=== PATIENT | female | born 1955 | race Caucasian/White ===

== ENCOUNTER 2021-07-12 14:55 | Inpatient (IN) | payer OTHER ==
[~2021-07-12] VITALS: Ht 154.9 cm; Wt 69.8 kg
[~2021-07-12 14:55] MED LIST: AMITRIPTYLINE100 M2 PO; ATEN50 PO; AZIT250 PO; Aspir 8181 MG PO; CHLO25B; Lisinopril2.5 MG; NABU500; POTA20PAC PO
[2021-07-12 15:22] LABS: Hematocrit 43.3 % (33.0-51.0); Hemoglobin 13.7 g/dL (11.5-16.0); Mean Corpuscular HGB 30.6 pg (26.0-34.0); Mean Corpuscular HGB Conc 31.6 g/dL (31.5-36.5); Mean Corpuscular Volume 97 fL (80-100); Mean Platelet Volume 10.8 fL (9.1-12.4); Platelet Count 388 K/mm3 (150-400); RDW Coefficient Variation 14.2 % (11.7-14.2); RDW Standard Deviation 51.5 fL (35.1-46.3); Red Blood Cell Count 4.47 M/mm3 (3.80-5.20); White Blood Cell Count 18.76 K/mm3 (4.00-11.30)
[2021-07-12 15:42] LABS: Alanine Aminotransfer (ALT/SGP 45 U/L (12-78); Albumin, Blood 2.5 g/dL (3.4-5.0); Albumin/Globulin Ratio 0.4 (0.8-1.8); Alk Phos 154 U/L (50-136); Anion Gap 8 mmol/L (6-16); Aspartate Aminotrans (AST/SGOT 44 U/L (12-37); Bilirubin, Total 0.5 mg/dL (0.1-1.0); Blood Urea Nitrogen 27 mg/dL (8-24); Bun/Creatinine Ratio 35.2 (12.0-20.0); CO2, Blood 35 mmol/L (21-32); Calcium, Blood 10.4 mg/dL (8.5-10.1); Chloride, Blood 96 mmol/L (98-108); Creatinine, Blood 0.77 mg/dL (0.40-1.00); Globulin, Blood 6.4 g/dL (2.2-4.0); Glomerular Filtration Rate >60 (60-); Glucose, Blood 209 mg/dL (70-99); Potassium, Blood 3.5 mmol/L (3.5-5.5); Sodium, Blood 139 mmol/L (136-145); Total Protein, Blood 8.9 g/dL (6.4-8.2)
[2021-07-12 15:48] LABS: PCO2 Arterial 65.2 mmHg (35-45); PO2 Arterial 82.2 mmHg (80-100); pH Blood Arterial 7.36 (7.35-7.45)
[2021-07-12 16:29] LABS: BAND PERCENT MAN 10 % (0-8); BASOPHILS PERCENT MAN 0 % (0-2); EOSINOPHILS PERCENT MAN 0 % (0-6); LYMPHOCYTES ABSOLUTE MAN 1.68 K/mm3 (0.84-5.20); LYMPHOCYTES PERCENT MAN 9 % (21-46); METAMYELOCYTE ABSOLUTE MAN 0.18 K/mm3 (0.00-0.00); METAMYELOCYTE PERCENT MAN 1 % (0-0); MONOCYTES PERCENT MAN 8 % (4-13); NEUTROPHILS ABSOLUTE MAN 15.38 K/mm3 (1.96-9.15); SEG NEUTROPHILS PERCENT MAN 72 % (41-73); TOTAL CELLS COUNTED 100
[2021-07-13 04:06] LABS: BASOPHILS ABSOLUTE AUTO 0.09 K/mm3 (0.00-0.23); BASOPHILS PERCENT AUTO 1 % (0-2); EOSINOPHILS ABSOLUTE AUTO 0.01 K/mm3 (0.00-0.68); EOSINOPHILS PERCENT AUTO 0 % (0-6); Hematocrit 39.5 % (33.0-51.0); Hemoglobin 12.6 g/dL (11.5-16.0); IMMATURE GRAN ABSOLUTE AUTO 0.24 K/mm3 (0.00-0.10); IMMATURE GRAN PERCENT AUTO 2 % (0-1); LYMPHOCYTES ABSOLUTE AUTO 0.75 K/mm3 (0.84-5.20); LYMPHOCYTES PERCENT AUTO 7 % (21-46); MONOCYTES ABSOLUTE AUTO 0.18 K/mm3 (0.16-1.47); MONOCYTES PERCENT AUTO 2 % (4-13); Mean Corpuscular HGB 30.7 pg (26.0-34.0); Mean Corpuscular HGB Conc 31.9 g/dL (31.5-36.5); Mean Corpuscular Volume 96 fL (80-100); Mean Platelet Volume 10.8 fL (9.1-12.4); NEUTROPHILS ABSOLUTE AUTO 9.63 K/mm3 (1.96-9.15); NEUTROPHILS PERCENT AUTO 88 % (41-73); Platelet Count 344 K/mm3 (150-400); RDW Coefficient Variation 14.4 % (11.7-14.2); RDW Standard Deviation 50.6 fL (35.1-46.3)
[2021-07-13 04:25] LABS: Anion Gap 8 mmol/L (6-16); Blood Urea Nitrogen 29 mg/dL (8-24); Bun/Creatinine Ratio 45.2 (12.0-20.0); CO2, Blood 34 mmol/L (21-32); Calcium, Blood 9.4 mg/dL (8.5-10.1); Chloride, Blood 99 mmol/L (98-108); Creatinine, Blood 0.64 mg/dL (0.40-1.00); Glomerular Filtration Rate >60 (60-); Glucose, Blood 150 mg/dL (70-99); Potassium, Blood 3.5 mmol/L (3.5-5.5); Sodium, Blood 141 mmol/L (136-145)
--- NOTE | 2021-07-13 05:44 | NUR ---
SHIFT SUMMARY PT IS ALERT AND ORIENTED. PT DENIES CHEST PAIN/PRESSURE. PT BECOMES SOB UPON EXERTION. WILL DESAT INTO LOW 80'S AND IS SLOW TO RECOVER INTO >89%. PT IS ON 5-7 HIFLOW NC. PT IS CURRENTLY ABLE TO USE BSC WITH SBA. BP HAS BEEN ELEVATED AFTER MOVEMENT AND IS SR-ST. TEMP IS WNL. CALL LIGHT IS WITHIN REACH. PT DID ATTEMPT TO GET OUT OF BED TO USE BATHROOM, BED ALARM IS ON.
--- NOTE | 2021-07-13 10:29 | NUR ---
AM NOTE: PATIENT ALERT AND ORIENTED X4. AT TIMES SLIGHTLY CONFUSED. DENIES NUMBNESS/TINLING. IRREGULAR LEFT PUPIL SHAPE, PATIENT STATES BASELINE FROM PREVIOUS SURGERY. TELE SHOWING SINUS RHYTHM WITH HR 80'S. AT TIMES HR INCREASING TO 130'S. BP STABLE. DENIES CHEST PAIN/PRESSURE. ON 8L NASAL CANNULA. LUNGS SOUNDING WHEEZY, BREATHING TREATMENTS. DRY COUGH. ATTENDS IN PLACE. BSC WITH 1 PERSON ASSIST. AT TIMES INCONT. TOLERATING PO DIET. PATIENT STATES SHE DOES NOT HAVE MUCH OF AN APPEATITE. DRINKING WATER. TAKING PILLS WHOLE. BED ALARM ON FOR SAFETY. CALL LIGHT IN REACH. WILL CONTINUE TO MONITOR. DR. ALVARADOTRATE IN TO SEE PATIENT. DISCUSSED CHEST XRAY AND RECENT LAB RESULTS.
--- NOTE | 2021-07-13 13:30 | NUR ---
UPDATE: SPOKE WITH DR. BENITEZ REGARDING THE NEED TO CONTINUE NORMAL SALINE. ORDERS TO RUN AT TKO AT THIS TIME. WILL RUN NORMAL SALINE AT TKO. PATIENT RESTING IN BED.
--- NOTE | 2021-07-13 17:58 | NUR ---
SHIFT SUMMARY: NO ACUTE CHANGES. PATIENT NEURO REMAINS UNCHANGED. ON 5-8L NASAL CANNULA NEEDING MORE WHEN UP TO BSC OR TALKING. SATING LOW 90'S. TELE REMAINS UNCHANGED. NO CHEST PAIN/PRESSURE. DECREASED APPEATITE. DRY COUGH CONTINUES. PATIENT STATES SHE IS FEELING SOB. 1 PERSON STAND BY TO BSC. FAMILY IN TO VISIT. DENIES PAINS AT THIS TIME. SPEECH THERAPY ORDERED FOR TOMORROW. NORMAL SALINE RUNNING AT TKO. WILL CONTINUE TO MONITOR AND REPORT OFF.
[2021-07-14 03:43] LABS: BASOPHILS ABSOLUTE AUTO 0.07 K/mm3 (0.00-0.23); BASOPHILS PERCENT AUTO 1 % (0-2); EOSINOPHILS PERCENT AUTO 0 % (0-6); Hematocrit 41.7 % (33.0-51.0); Hemoglobin 12.7 g/dL (11.5-16.0); Mean Corpuscular HGB 30.2 pg (26.0-34.0); Mean Corpuscular HGB Conc 30.5 g/dL (31.5-36.5); Mean Corpuscular Volume 99 fL (80-100); Mean Platelet Volume 10.7 fL (9.1-12.4); Platelet Count 351 K/mm3 (150-400); RDW Coefficient Variation 14.8 % (11.7-14.2); RDW Standard Deviation 54.3 fL (35.1-46.3); White Blood Cell Count 11.49 K/mm3 (4.00-11.30)
[2021-07-14 03:45] LABS: IMMATURE GRAN PERCENT AUTO 3 % (0-1); LYMPHOCYTES PERCENT AUTO 10 % (21-46); MONOCYTES ABSOLUTE AUTO 0.45 K/mm3 (0.16-1.47); MONOCYTES PERCENT AUTO 4 % (4-13); NEUTROPHILS ABSOLUTE AUTO 9.47 K/mm3 (1.96-9.15); NEUTROPHILS PERCENT AUTO 83 % (41-73)
[2021-07-14 04:01] LABS: Anion Gap 5 mmol/L (6-16); Blood Urea Nitrogen 36 mg/dL (8-24); Bun/Creatinine Ratio 48.2 (12.0-20.0); CO2, Blood 37 mmol/L (21-32); Calcium, Blood 9.5 mg/dL (8.5-10.1); Chloride, Blood 101 mmol/L (98-108); Creatinine, Blood 0.75 mg/dL (0.40-1.00); Glomerular Filtration Rate >60 (60-); Glucose, Blood 146 mg/dL (70-99); Potassium, Blood 3.8 mmol/L (3.5-5.5); Sodium, Blood 143 mmol/L (136-145)
--- NOTE | 2021-07-14 05:36 | NUR ---
SHIFT SUMMARY PT IS ALERT AND ORIENTED. THERE HAVE BEEN NO ACUTE CHANGES T/O THE NIGHT. VITAL SIGNS ARE STABLE AND IS ON HI FLOW NC 8-11 DUE TO OXYGEN NEEDS ON EXERTION. PT HAS BEEN SINUS LEILANI WHEN SLEEPING TO NORMAL SINUS. PT DENIES CHEST PAIN/PRESSURE. PT HAS BEEN ABLE TO GET UP TO BSC AND IS ALSO INCONT IN BRIEF. PT IS ABLE TO MAKE NEEDS KNOWN. BED ALARM ON. CALL LIGHT IS WITHIN REACH.
--- NOTE | 2021-07-14 10:16 | NUR ---
AM NOTE: PATIENT ALERT AND ORIENTED X4. NEURO WNL. USING CALL LIGHT. OVERALL WEAK. SBA TO BSC. ON 6-8L NASAL CANNULA WHEN AWAKE, NEEDING MORE WHEN UP MOVING AROUND. DESATS WITH ACTIVITY. SATING LOW 90'S. EXPIRATORY WHEEZE, BREATHING TREATMENTS. DRY COUGH. TELE SHOWING SINUS LEILANI-SINUS RHYTHM, TOUCHING 50'S WHEN IN DEEP SLEEP. AVERAGING 80'S WHEN AWAKE. BP STABLE. DENIES CHEST PAIN/PRESSURE. VITAL SIGNS STABLE. NO SIGNS OF EDEMA. TOLERATING PO DIET, TAKING MEDS WHOLE WITH APPLESAUCE. NS RUNNING AT TKO. WILL CONTINUE TO MONITOR. BED ALARM ON FOR SAFETY.
--- NOTE | 2021-07-14 17:32 | NUR ---
SHIFT SUMMARY: NO ACUTE CHANGES, PATIENT REMAINS ON 4L NASAL CANNULA AT REST. NEEDING 6-7L WHEN EATING. TELE DISCONT. VITAL SIGNS REMAINS STABLE. DENIES CHEST PAIN/PRESSURE. AT TIMES AUDITORY WHEEZE HEARD, BREATHING TREATMENTS PER RT. UP TO BSC WITH 1 PERSON ASSIST. INCONT AT TIMES IN BRIEF. TOLERTING PO DIET, INCREASED APPEATITE. DRINKING WATER AND PEPSI. DENIES NEEDS AT THIS TIME. LEVAQUIN INFUSED. WILL CONTINUE TO MONITOR AND REPORT OFF.
[2021-07-15 04:37] LABS: Hematocrit 39.9 % (33.0-51.0); Hemoglobin 12.6 g/dL (11.5-16.0); Mean Corpuscular HGB 30.7 pg (26.0-34.0); Mean Corpuscular HGB Conc 31.6 g/dL (31.5-36.5); Mean Corpuscular Volume 97 fL (80-100); Mean Platelet Volume 10.6 fL (9.1-12.4); Platelet Count 356 K/mm3 (150-400); RDW Coefficient Variation 14.7 % (11.7-14.2); RDW Standard Deviation 53.5 fL (35.1-46.3); White Blood Cell Count 7.84 K/mm3 (4.00-11.30)
[2021-07-15 05:10] LABS: Alanine Aminotransfer (ALT/SGP 35 U/L (12-78); Albumin, Blood 2.1 g/dL (3.4-5.0); Albumin/Globulin Ratio 0.4 (0.8-1.8); Alk Phos 109 U/L (50-136); Anion Gap 4 mmol/L (6-16); Aspartate Aminotrans (AST/SGOT 26 U/L (12-37); Bilirubin, Total 0.4 mg/dL (0.1-1.0); Blood Urea Nitrogen 34 mg/dL (8-24); Bun/Creatinine Ratio 40.1 (12.0-20.0); CO2, Blood 38 mmol/L (21-32); Calcium, Blood 9.2 mg/dL (8.5-10.1); Chloride, Blood 100 mmol/L (98-108); Creatinine, Blood 0.85 mg/dL (0.40-1.00); Globulin, Blood 5.2 g/dL (2.2-4.0); Glomerular Filtration Rate >60 (60-); Glucose, Blood 154 mg/dL (70-99); Magnesium, Blood 1.7 mg/dL (1.6-2.4); Potassium, Blood 3.8 mmol/L (3.5-5.5); Sodium, Blood 142 mmol/L (136-145); Total Protein, Blood 7.3 g/dL (6.4-8.2)
[2021-07-15 05:13] LABS: BAND PERCENT MAN 4 % (0-8); BASOPHILS PERCENT MAN 0 % (0-2); EOSINOPHILS PERCENT MAN 0 % (0-6); LYMPHOCYTES ABSOLUTE MAN 0.54 K/mm3 (0.84-5.20); LYMPHOCYTES PERCENT MAN 7 % (21-46); METAMYELOCYTE ABSOLUTE MAN 0.07 K/mm3 (0.00-0.00); METAMYELOCYTE PERCENT MAN 1 % (0-0); MONOCYTES ABSOLUTE MAN 0.31 K/mm3 (0.16-1.47); MONOCYTES PERCENT MAN 4 % (4-13); MYELOCYTE ABSOLUTE MAN 0.15 K/mm3 (0.00-0.00); MYELOCYTE PERCENT MAN 2 % (0-0); NEUTROPHILS ABSOLUTE MAN 6.74 K/mm3 (1.96-9.15); SEG NEUTROPHILS PERCENT MAN 82 % (41-73); TOTAL CELLS COUNTED 100
--- NOTE | 2021-07-15 05:19 | NUR ---
SHIFT SUMMARY PT IS ALERT AND ORIENTED. THERE HAVE BEEN NO ACUTE CHANGES T/O THE NIGHT. PT DENIES CHEST PAIN/PRESSURE. PT REPORTS FEELING SOB WITH MOVEMENT AND WHEN GETTING UP TO BSC. VITALS ARE STABLE AND IS ON 5L HI FLOW NC WITH SATS >91%. PT IS ABLE TO MAKE NEEDS KNOWN. CALL LIGHT IS WITHIN REACH.
--- NOTE | 2021-07-15 18:21 | NUR ---
END OF SHIFT SUMMARY: PATIENT IS STILL ALERT AND ORIENTED SOME ANXIETY WITH BREATHING, ON 5-8L VIA HFNC, DENIES CHEST PAIN, IS SOB AT TIMES, ABLE TO LEVER TENDER AND BREATHING SLOWS, AND SOB SUBSIDES. RECIEVED PRN ALBUTEROL WHICH HELP CLEAR THE AMOUNT OF EXP WHEEZE. SPO2 >90%. PATIENT WAS ABLE TO TRANSFER TO THE BSC WITH ONLY SBA. MED STATUS NO TELE AT THIS TIME. 0 WOUNDS, SKIN C/D/I. NO CONCERNS FOR THIS PATIENT AT THIS TIME, WILL CONTINUE TO MONITOR.
[2021-07-16 04:14] LABS: Hematocrit 38.2 % (33.0-51.0); Hemoglobin 12.1 g/dL (11.5-16.0); Mean Corpuscular HGB 30.8 pg (26.0-34.0); Mean Corpuscular HGB Conc 31.7 g/dL (31.5-36.5); Mean Corpuscular Volume 97 fL (80-100); Platelet Count 321 K/mm3 (150-400); RDW Coefficient Variation 14.7 % (11.7-14.2); RDW Standard Deviation 53.1 fL (35.1-46.3); Red Blood Cell Count 3.93 M/mm3 (3.80-5.20); White Blood Cell Count 6.39 K/mm3 (4.00-11.30)
[2021-07-16 04:29] LABS: Anion Gap 3 mmol/L (6-16); Blood Urea Nitrogen 40 mg/dL (8-24); Bun/Creatinine Ratio 54.2 (12.0-20.0); CO2, Blood 39 mmol/L (21-32); Calcium, Blood 8.9 mg/dL (8.5-10.1); Chloride, Blood 101 mmol/L (98-108); Creatinine, Blood 0.74 mg/dL (0.40-1.00); Glomerular Filtration Rate >60 (60-); Glucose, Blood 191 mg/dL (70-99); Potassium, Blood 4.3 mmol/L (3.5-5.5); Sodium, Blood 143 mmol/L (136-145)
--- NOTE | 2021-07-16 04:40 | NUR ---
PATIENT REMAINS ALERT FOLLOW COMMANDS. VITAL STABLE, AFEBRILE NO C/O VOICED.CONTINENT OF BLADDER AND BOWEL. DEIT IS MECH SOFT. FLU MED GIVEN. FREQUENT ROUNDS TO ENSURE PATIENT SAFETY. PATIENT IN NO DISTRESS. WILL CONTINUE TO MONITOR PATIENT CONDITION UNTIL ONCOMING RN.
[2021-07-16 05:29] LABS: BAND PERCENT MAN 2 % (0-8); BASOPHILS PERCENT MAN 0 % (0-2); EOSINOPHILS PERCENT MAN 0 % (0-6); LYMPHOCYTES ABSOLUTE MAN 0.44 K/mm3 (0.84-5.20); LYMPHOCYTES PERCENT MAN 7 % (21-46); MONOCYTES ABSOLUTE MAN 0.57 K/mm3 (0.16-1.47); MONOCYTES PERCENT MAN 9 % (4-13); NEUTROPHILS ABSOLUTE MAN 5.36 K/mm3 (1.96-9.15); SEG NEUTROPHILS PERCENT MAN 82 % (41-73); TOTAL CELLS COUNTED 100
--- NOTE | 2021-07-16 17:44 | NUR ---
SHIFT SUMMARY PT A&O X4. VSS. SPO2 > 92% ON 5L NC TITRATED TO 3L NC TODAY. PT MADE MEDICAL NO TELE STATUS TODAY. NO EVENTS.
--- NOTE | 2021-07-16 18:20 | NUR ---
TRANSFER TO MEDICAL FLOOR REPORT GIVEN TO ACCEPTING MEDICAL FLOOR RN. PT TRANSFERRED TO 305 BY BED W/ OXYGEN & BELONGINGS BY 2 CHEMICAL OPERATIONS AND TRAINING's @ APPROX [id number].
--- NOTE | 2021-07-16 19:21 | NUR ---
AWAKE. TV ON. MONITORING HER PHONE. DENIES PAIN AND LOSS OF FEELING. CALL LIGHT IN REACH
--- NOTE | 2021-07-17 04:50 | NUR ---
ELECTRONICS INSTRUCTOR SUMMARY HAS BEEN RESTING QUIETLY WITH FEW INTERRUPTIONS THIS SHIFT. WAS WATCHING TV A UP UNTIL HS, TOLERATED MEDS WELL. ALERT AND ORIENTED. DENIED LOSS OF FEEELING AND PAIN. O2 PER NC AT 3L/MIN. VSS. CALL LIGHT IN REACH. BED IN LOW POSITION. FREQUENT OBSERVATIONS. NO NOTED ACUTE DISTRESS
--- NOTE | 2021-07-18 02:40 | NUR ---
SUPPLY CHAIN PROCUREMENT MANAGER SUMMARY PATIENT HAD A FAIR SHIFT. SHE DID NOT LODGE ANY COMPLAINTS OVERNIGHT. SHE WAS ABLE TO USE THE BEDSIDE COMMODE WITH MODERATE ASSISSTANT. VITALS ARE STABLE, WILL CONTINUE TO MONITOR HER.
[2021-07-18 05:49] LABS: Anion Gap 6 mmol/L (6-16); Blood Urea Nitrogen 44 mg/dL (8-24); Bun/Creatinine Ratio 54.4 (12.0-20.0); CO2, Blood 36 mmol/L (21-32); Calcium, Blood 8.8 mg/dL (8.5-10.1); Chloride, Blood 98 mmol/L (98-108); Creatinine, Blood 0.81 mg/dL (0.40-1.00); Glomerular Filtration Rate >60 (60-); Glucose, Blood 192 mg/dL (70-99); Potassium, Blood 4.2 mmol/L (3.5-5.5); Sodium, Blood 140 mmol/L (136-145)
--- NOTE | 2021-07-18 18:48 | NUR ---
SHIFT SUMMARY PT A/O X3; PLEASANT AND COOPERATIVE WITH CARE. PT HAS DYSPNEA ON EXERTION AND IS A SBA. CURRENTLY ON 3 LITERS O2. REMAINS IN ISOLATION FOR THE FLU. MAY BE ABLE TO DC IN 1-2 DAYS TIME. VSS. WILL REPORT TO JAQUI SCHULTE.
--- NOTE | 2021-07-19 04:29 | NUR ---
AGRICULTURAL PLOW OPERATOR SUMMARY PATIENT HAD A FAIR SHIFT. SHE IS ALERT AND ORIENTED. NO COMPLAINTS LODGED OVER NIGHT. WILL CONTINUE TO MONITOR HER.
[2021-07-19 05:13] LABS: Bun/Creatinine Ratio 50.5 (12.0-20.0); Calcium, Blood 8.8 mg/dL (8.5-10.1); Creatinine, Blood 1.01 mg/dL (0.40-1.00)
--- NOTE | 2021-07-19 18:38 | NUR ---
END OF SHIFT SUMMARY: PATIENT PLEASANT & COOPERATIVE, PATIENT TOLD MD THEY DID NOT FEEL READY FOR DC TODAY, POSSIBLY DC TOMORROW. IV LEVAQUINN GIVEN. DC PREDNISONE. VITALS STABLE. PATIENT DOING WELL AMBUALTING TO BR WITH SBA. WILL CONTINUE WITH PLAN OF CARE.
--- NOTE | 2021-07-20 02:08 | NUR ---
BILL RECAPITULATION CLERK SUMMARY PATIENT HAD A FAIR SHIUFT. ON OXYGEN AT 2L NOW. WILL WEAN DOWN TO 1L SEE HOW SHE DOES. V/S ARE STABLE,WILL CONTINUE TO MONITOR HER.
--- NOTE | 2021-07-20 17:14 | NUR ---
END OF SHIFT SUMMARY: PATIENT DOING WELL THIS SHIFT, IMPROVED WITH ACTIVITY. WORKED WITH PT TODAY, PT RECOMMENDED 1L/O2 AT REST AND 2L/O2 DURING ACTIVITY. LUNGS CLEAR, INFREQUENT DRY COUGH, SOB W/ EXCERTION. VITALS STABLE. WILL CONTINUE TO TITRATE O2, AND ENCOURAGE AMBULATING & OOB FOR MEALS.
--- NOTE | 2021-07-21 02:45 | NUR ---
SOCIAL WORK SUPERVISOR SUMMARY PATIENT HAD A FAIR. ALERT AND ORIENTED. SHED IS ON OXYGEN @1-2L. SHE DID NOT LODGE ANY COMPLAIN OVERNIGHT. WILL CONTINUE TO MONITOR HER.
[2021-07-21] MEDS ORDERED: ATEN25 PO (10:23)
[2021-07-21] MEDS ORDERED: GUAI600T33 PO (10:24)
[2021-07-21] MEDS ORDERED: AIRDUO DIGIHAL1 EAC2 IH (10:24)
--- NOTE | 2021-07-21 14:06 | NUR ---
PATIENT DISCHARGED HOME WITH FAMILY TODAY. PAT[place]ISIT[place] FROM [place] STATE. DISCHARGE TEACHING PROVIDED, INSTRUCTED PT TO SEEK MEDICAL ATTENTION IF SX WORSEN, AND TO CONTACT PCP FOR A FOLLOW-UP WHEN PATIENT RETURNS TO [place], NEXT WEEK. PATIENT/FAMILY VERBILIZED UNDERSTANDING. REMOVED IV. VITALS STABLE. PATIENT LEFT UNIT AT 1345.
== END 2021-07-21 13:41 | disposition home or self-care (01) | DRG 871 ==
LOC: ER 14:55 → PCU 17:32 → MEDS 07-16 18:25
PROVIDERS: Emergency Medicine; Family Medicine; Internal Medicine; ADMIT Internal Medicine
PROC: 5A0945A Assistance with Respiratory Ventilation, 24-96 Consecutive Hours, High Flow/Velocity Cannula (ICD-10-PCS; principal; 2021-07-13)
DX: A41.89 Other specified sepsis (principal); J10.08 Influenza due to other identified influenza virus with other specified pneumonia; J96.01 Acute respiratory failure with hypoxia; J12.89 Other viral pneumonia; J15.9 Unspecified bacterial pneumonia; J44.0 Chronic obstructive pulmonary disease with (acute) lower respiratory infection; J44.1 Chronic obstructive pulmonary disease with (acute) exacerbation; J45.901 Unspecified asthma with (acute) exacerbation; J96.10 Chronic respiratory failure, unspecified whether with hypoxia or hypercapnia; R65.20 Severe sepsis without septic shock; I10 Essential (primary) hypertension; Z20.822 Contact with and (suspected) exposure to COVID-19; T38.0X5A Adverse effect of glucocorticoids and synthetic analogues, initial encounter; E87.6 Hypokalemia; Z98.890 Other specified postprocedural states; Z88.0 Allergy status to penicillin; Z88.8 Allergy status to other drugs, medicaments and biological substances; Z87.891 Personal history of nicotine dependence; Z79.82 Long term (current) use of aspirin; Z79.899 Other long term (current) drug therapy
CPT/HCPCS: 36415; 36600; 71045; 80048; 80053; 82803; 83605; 83735; 83880; 84145; 84484; 85025; 87040; 92526; 92610; 93005; 93010; 94640; 94660; 94760; 94762; 96365; 96366; 96375; 97110; 97116; 97162; 97530; 99285-25; A9270; J1650; J1940; J1956; J2930; J7030; J7050; J7512